=== PATIENT | male | born 1930 | race Caucasian/White ===

== ENCOUNTER 2016-12-14 09:12 | Emergency (ER) | payer OTHER, MEDICARE ==
--- NOTE | 2016-12-14 09:27 | ER Document Report ---
ED Fall - General Chief Complaint: Fall Stated Complaint: FALL Time Seen by Provider: 12/14/16 09:17 Notes: 86-year-old male with history of diabetes presents with left-sided chest pain after falling 2 days ago. Initially did not realize he had much of an injury but today he noticed he has increased pain in his left lateral chest wall more towards the back. It is worse with movement such as sitting up. No cough. No shortness of breath. No hemoptysis. Had some bruising to his left elbow but denies any significant pain now. Denies abdominal pain. No anterior chest pain. Denies spine discomfort, headache or loss of consciousness. - Related data Allergies/Adverse Reactions: No Known Allergies Allergy (Verified 12/14/16 09:44) Past Medical History - Social History Smoking Status: Unknown if Ever Smoked Lives with: Skilled Nursing Family History: Reviewed & Not Pertinent Review of Systems - Review of Systems -: Yes All other systems reviewed and negative Physical Exam - Vital signs Vitals: Temp Pulse Resp BP Pulse Ox 98.2 F 51 L 16 139/55 H 95 12/14/16 09:23 12/14/16 09:23 12/14/16 09:23 12/14/16 09:23 12/14/16 09:23 - Notes Notes: GENERAL: VS as per nursing doc. Well-appearing, well-nourished and in no acute distress. HEAD: Atraumatic, normocephalic. EYES: Pupils equal round and reactive to light, extraocular movements intact, sclera anicteric, no conjunctival injection or discharge. ENT: Nares patent, oropharynx clear without exudates, moist mucous membranes. NECK: Normal range of motion, supple without tenderness to palpation LUNGS: Breath sounds clear to auscultation bilaterally and equal. No wheezes rales or rhonchi. No splinting. HEART: Regular rate and rhythm without murmurs. ABDOMEN: Soft, non-tender. BACK: No CVA tenderness. There is tenderness without crepitance of the left lateral chest wall from the axillary region to the posterior axillary line of the lower ribs. No crepitance is noted. EXTREMITIES: Normal range of motion, mild ecchymosis of left elbow. Good range of motion without pain elicited by palpation or movement. NEUROLOGICAL: Cranial nerves grossly intact. Normal speech. Normal sensory and motor exams. No gross cerebellar abnormalities. PSYCH: Normal mood, normal affect. SKIN: Warm, dry, normal turgor, no lesions noted. Course - Re-evaluation Re-evalutation: 12/14/16 11:26 X-ray did not show any fractures. Clinically he does not seem to have a fracture either but more consistent with strain/contusion. Aftercare instructions discussed and understood. - Vital Signs Vital signs: Temp Pulse Resp BP Pulse Ox 98.2 F 51 L 16 139/55 H 95 12/14/16 09:23 12/14/16 09:23 12/14/16 09:23 12/14/16 09:23 12/14/16 09:23 - Diagnostic Test Radiology reviewed: Reports reviewed - No Fracture Discharge - Discharge Clinical Impression: Contusion of chest wall with intact skin Condition: Good Disposition: REHAB FACILITY Additional Instructions: Return for any problem or concern. Tylenol for discomfort. Referrals: KEV ESCOBAR MD [Primary Care Provider] - Follow up in 3-5 days
--- NOTE | 2016-12-14 11:18 | RADIOLOGY REPORT (SQ) ---
EXAM DESCRIPTION: RIBS LEFT W/PA CHEST COMPLETED DATE/TIME: 12/14/2016 11:07 am REASON FOR STUDY: Trauma with pain COMPARISON: None. TECHNIQUE: Frontal view of the chest and additional views of the left ribs acquired. NUMBER OF VIEWS: Four views LIMITATIONS: None. FINDINGS: FRONTAL CXR: No pneumothorax. No pleural effusion. No atelectasis or infiltrates. RIBS: No displaced rib fractures. No lytic or blastic bony lesions. OTHER: No other significant finding. IMPRESSION: NO PNEUMOTHORAX. NO DISPLACED RIB FRACTURES. COMMENT: SITE OF TRAUMA/COMPLAINT MARKED/STAMP COMPLETED: Yes TECHNICAL DOCUMENTATION: JOB ID: [id number] [employer]- All Rights Reserved
[2016-12-14] MEDS ORDERED: ACETAMINOPHEN 325 MG TABLET PO ONE (11:29)
[2016-12-14 14:31] VITALS: BP 115/55
== END 2016-12-14 14:32 ==
LOC: ER 09:12
DX: S20.219A Contusion of unspecified front wall of thorax, initial encounter (principal); S50.02XA Contusion of left elbow, initial encounter; W19.XXXA Unspecified fall, initial encounter
CPT/HCPCS: 99284

== ENCOUNTER 2017-08-16 11:33 | Emergency (ER) | payer OTHER, MEDICARE ==
[2017-08-16 11:54] VITALS: BP 148/64
--- NOTE | 2017-08-16 12:04 | ER Document Report ---
ED General - General Chief Complaint: Abnormal Lab Results Stated Complaint: ABNORMAL LABS Time Seen by Provider: 08/16/17 11:45 - HPI Notes: 87-year-old male with dementia who presents with abnormal laboratory. Last week patient had outpatient labs drawn, results came back this week and listed a potassium of 2.5. He is sent to the ED for evaluation. He himself denies any acute complaint. He is somewhat of a poor historian given his dementia, indicates he has some chronic loose stools and takes a water pill. He denies weakness. No chest pain, dyspnea. No vomiting. No worsening diarrhea. No change in underlying medications. No other modifying factors, no other associated symptoms, no other provocative or palliative factors. - Related Data Allergies/Adverse Reactions: No Known Allergies Allergy (Verified 12/14/16 09:44) Past Medical History - Social History Smoking Status: Unknown if Ever Smoked Family History: Reviewed & Not Pertinent Patient has suicidal ideation: No Patient has homicidal ideation: No - Medical History Notes: History includes dementia - Past Medical History Cardiac Medical History: Reports: Hx Hypertension Endocrine Medical History: Reports: Hx Diabetes Mellitus Type 2 Renal/ Medical History: Denies: Hx Peritoneal Dialysis Review of Systems - Review of Systems Notes: Review of systems as in the history of present illness, otherwise negative. Physical Exam - Vital signs Vitals: Temp Pulse Resp BP Pulse Ox 97.8 F 46 L 16 148/64 H 98 08/16/17 11:53 08/16/17 11:53 08/16/17 11:53 08/16/17 11:53 08/16/17 11:53 - Notes Notes: General: Well developed . HEENT: Normocephalic, atraumatic. Pupils equal round reactive to light. No JVD. Chest: No trauma. Respiratory: Good air exchange, normal excursion. Cardiac: Regular rhythm. No murmurs or gallops. Abdomen: Soft, benign. Nondistended. Nontender. Back: No asymmetry or gross abnormality. Motor: Grossly normal power and tone. Neurologic: Alert, nonfocal. DTRs 1+ symmetric Vascular: Well perfused. Normal peripheral pulses. Skin: No petechiae or purpura. Course - Re-evaluation Re-evalutation: 08/16/17 12:04 elderly male with the after mentioned symptoms. Will recheck potassium, check ECG. Serial examination reevaluate. 08/16/17 13:05 Patient is done well, remains asymptomatic. ECG was obtained, shows sinus bradycardia. Patient's potassium is low at 2.8. He has no EKG evidence of U waves. He is given a dose of oral potassium in the ED and discharged on supplementation, will have it rechecked over the next 48 hours. He does have some moderate bradycardia, but his sinus in mechanism and is asymptomatic. This can be followed as an outpatient. - Vital Signs Vital signs: Temp Pulse Resp BP Pulse Ox 97.8 F 46 L 16 148/64 H 98 08/16/17 11:53 08/16/17 11:53 08/16/17 11:53 08/16/17 11:53 08/16/17 11:53 - Laboratory Result Diagrams: 08/16/17 12:03 Laboratory results interpreted by me: 08/16/17 12:03 Potassium 2.8 L* Carbon Dioxide 34 H Glucose 113 H Albumin 3.4 L - EKG Interpretation by Me Additional EKG results interpreted by me: 08/16/17 13:08 12 Lead ECG Analysis A 12 lead ECG is obtained and shows a sinus bradycardia, normal QRS, normal QTC. There are nonspecific ST-T changes, no evidence of acute ischemic changes. Discharge - Discharge Clinical Impression: Hypokalemia Condition: Good Disposition: HOME, SELF-CARE Instructions: Hypokalemia ([facility]) Prescriptions: Potassium Chloride 20 meq PO BID 5 Days [email or web address] Referrals: KEV ESCOBAR MD [Primary Care Provider] - Follow up as needed
[2017-08-16 12:43] LABS: ALANINE AMINOTRANSFERASE 22 U/L (21-72); ALBUMIN 3.4 g/dL (3.5-5.0); ALKALINE PHOSPHATASE 79 U/L (38-126); ANION GAP 11 (5-19); ASPARTATE AMINO TRANSFERASE 23 U/L (17-59); BILIRUBIN,DIRECT 0.3 mg/dL (0.0-0.4); BILIRUBIN,TOTAL 0.8 mg/dL (0.2-1.3); BLOOD UREA NITROGEN 17 mg/dL (7-20); CALCIUM 8.7 mg/dL (8.4-10.2); CARBON DIOXIDE 34 mmol/L (22-30); CHLORIDE 100 mmol/L (98-107); GLUCOSE 113 mg/dL (75-110); SODIUM 144.7 mmol/L (137-145); TOTAL PROTEIN 6.3 g/dL (6.3-8.2)
[2017-08-16 12:45] LABS: POTASSIUM 2.8 mmol/L (3.6-5.0)
[2017-08-16] MEDS ORDERED: POTASSIUM CHLORIDE 20 MEQ/15 ML UDCUP PO ONE (12:57)
--- NOTE | 2017-08-16 18:05 | EKG REPORT ---
SEVERITY:- ABNORMAL ECG - SINUS BRADYCARDIA . LEFT VENTRICULAR HYPERTROPHY : Confirmed by: Jayden Lovelace MD 16-Aug-2017 18:05:16
== END 2017-08-16 13:45 | disposition home or self-care (01) ==
LOC: ER 11:33
DX: E87.6 Hypokalemia (principal); I10 Essential (primary) hypertension; F03.90 Unspecified dementia, unspecified severity, without behavioral disturbance, psychotic disturbance, mood disturbance, and anxiety; E11.9 Type 2 diabetes mellitus without complications; R00.1 Bradycardia, unspecified
CPT/HCPCS: 36415; 80053; 93005; 93010; 99284

== ENCOUNTER 2018-01-02 14:56 | Emergency (ER) | payer MEDICARE, OTHER ==
[2018-01-02 15:40] LABS: ABSOLUTE MONOCYTES (AUTO) 0.7 10^3/uL (0.1-1.4); ABSOLUTE NEUT (AUTO) 6.3 10^3/uL (1.7-8.2); BASOPHILS % (AUTO) 0.4 % (0-2); EOSINOPHILS % (AUTO) 0.5 % (0-6); HEMATOCRIT 39.6 % (37.9-51.0); HEMOGLOBIN 13.7 g/dL (13.5-17.0); LYMPHOCYTES % (AUTO) 12.4 % (13-45); MEAN CORPUSCULAR HEMOGLOBIN 30.3 pg (27.0-33.4); MEAN CORPUSCULAR HGB CONC 34.6 g/dL (32.0-36.0); MEAN CORPUSCULAR VOLUME 88 fl (80-97); MONOCYTES % (AUTO) 9.2 % (3-13); PLATELET COUNT 264 10^3/uL (150-450); RED BLOOD COUNT 4.53 10^6/uL (4.35-5.55); RED CELL DISTRIBUTION WIDTH 13.7 % (11.5-14.0); SEGMENTED NEUTROPHILS % (AUTO) 77.5 % (42-78); TOTAL CELLS COUNTED % (AUTO) 100 %; WHITE BLOOD COUNT 8.1 10^3/uL (4.0-10.5)
[2018-01-02 15:56] LABS: ALANINE AMINOTRANSFERASE 17 U/L (21-72); ALBUMIN 3.7 g/dL (3.5-5.0); ALKALINE PHOSPHATASE 309 U/L (38-126); ANION GAP 9 (5-19); ASPARTATE AMINO TRANSFERASE 27 U/L (17-59); BILIRUBIN,DIRECT 0.6 mg/dL (0.0-0.4); BILIRUBIN,TOTAL 1.1 mg/dL (0.2-1.3); BLOOD UREA NITROGEN 25 mg/dL (7-20); CALCIUM 9.3 mg/dL (8.4-10.2); CARBON DIOXIDE 29 mmol/L (22-30); CHLORIDE 100 mmol/L (98-107); GLUCOSE 153 mg/dL (75-110); LIPASE 186.9 U/L (23-300); POTASSIUM 4.4 mmol/L (3.6-5.0); SODIUM 137.8 mmol/L (137-145); TOTAL PROTEIN 7.4 g/dL (6.3-8.2)
--- NOTE | 2018-01-02 15:58 | ER Document Report ---
HPI - HPI Pain Level: 2 Notes: Patient is an 87-year-old male with a history of dementia, Alzheimer's, hypertension, and BPH who presents to the ED complaining of dark colored urine and bilateral flank pain over the last week. Patient states the pain does not radiate and is described as a soreness. Patient states that the pain is relatively constant. He has not noticed any obvious blood in his urine. He has not had any history of kidney stones. Denies any drug allergies. Patient states that he otherwise feels well and has been eating and drinking without any difficulties. He states that he is urinating normally and having normal bowel movements. Denies any headache, fever, neck pain, URI, sore throat, chest pain, palpitations, syncope, cough, shortness of breath, wheeze, dyspnea, abdominal pain, nausea/vomiting/diarrhea, dysuria, hematuria, loss of control of bowel or bladder, numbness/tingling, saddle anesthesia, muscle paralysis/ weakness, or rash. - ROS Systems Reviewed and Negative: Yes All other systems reviewed and negative - Patient appears to be able to answer questions appropriately at this time - DERM Skin Color: Normal Past Medical History - Social History Smoking Status: Never Smoker Chew tobacco use (# tins/day): No Frequency of alcohol use: None Drug Abuse: None Family History: Reviewed & Not Pertinent Patient has suicidal ideation: No Patient has homicidal ideation: No - Past Medical History Cardiac Medical History: Reports: Hx Hypertension Endocrine Medical History: Reports: Hx Diabetes Mellitus Type 2 Renal/ Medical History: Denies: Hx Peritoneal Dialysis Vertical Provider Document - CONSTITUTIONAL Agree With Documented VS: Yes Notes: PHYSICAL EXAMINATION: GENERAL: Well-appearing, well-nourished and in no acute distress. A&Ox3. HEAD: Atraumatic, normocephalic. EYES: Pupils equal round and reactive to light, extraocular movements intact, sclera anicteric, conjunctiva are normal. ENT: Nares patent and without discharge. oropharynx clear without exudates. No tonsilar hypertrophy or erythema. Moist mucous membranes. NECK: Normal range of motion, supple without lymphadenopathy LUNGS: Breath sounds clear to auscultation bilaterally and equal. No wheezes rales or rhonchi. HEART: Regular rate and rhythm without murmurs, rubs, gallops. ABDOMEN: Soft, nontender, nondistended abdomen. No guarding, no rebound. No masses appreciated. Normal bowel sounds present. + mild CVA tenderness bilaterally vs tenderness to the L-paraspinal mm (difficult to specifiy with this patient), but suspect paraspinal mm. Musculoskeletal: LE's b/l: FROM to passive/active. Strength 5+/5. No deficits noted. No bony tenderness of extremities. Back: FROM to passive/active. Strength 5+/5. No vertebral point tenderness, stepoffs, or deformities. No other bony tenderness, erythema, swelling, or ecchymosis. SLR negative b/l. + mild tenderness to the L-paraspinal mm b/l, correlates with pain described/reproducible. No SI jt tenderness. No foot drop Extremities: No cyanosis, clubbing, or edema b/l. Peripheral pulses 2+. Capillary refill less than 3 seconds. NEUROLOGICAL: Cranial nerves grossly intact. Normal speech, normal gait. PSYCH: Normal mood, normal affect. SKIN: Warm, Dry, normal turgor, no rashes or lesions noted. - INFECTION CONTROL TRAVEL OUTSIDE OF THE [place] IN LAST 30 DAYS: No Course - Re-evaluation Re-evalutation: 01/02/18 18:25 Patient is an afebrile, well-hydrated, 87-year-old male who presents to the ED for bilateral low back pain and concern of darker colored urine. Vitals are acceptable without any significant tachycardia, tachypnea, or hypoxia. CBC, CMP , urinalysis, renal ultrasound was unremarkable for any acute pathology. He has no significant tachycardia, tachypnea, or hypoxia. A seth was placed after patient urinated and only a minimal amount was obtained indicating that he is able to fully urinate w/o difficulty or obstruction at this time. He is nontoxic-appearing and is tolerating p.o. without difficulties. There are no signs of infection. No other red flag symptoms noted. No other labs or imaging warranted at this time based on H&P. Low suspicion for any meningitis, fracture, expanding/ruptured AAA, cauda equina syndrome, epidural mass lesion/ abscess, herniated disc causing severe spinal stenosis, or other systemic infection at this time. Patient is aware that his condition can change from initial presentation and that he needs monitor symptoms closely for any acute changes. Conservative measures otherwise for symptoms. Recheck with your PCM in 3-5 days. Consider consult with orthopedic/physical therapy. Return to the ED with any worsening/concerning symptoms otherwise as reviewed discharge. Patient is in agreement. - Laboratory Result Diagrams: 01/02/18 15:00 01/02/18 15:00 Laboratory results interpreted by me: 01/02/18 15:00 Lymphocytes % 12.4 L Discharge - Discharge Clinical Impression: Low back pain Qualifiers: Chronicity: acute Back pain laterality: bilateral Sciatica presence: without sciatica Qualified Code(s): M54.5 - Low back pain Condition: Stable Disposition: HOME, SELF-CARE Additional Instructions: Rest, Ice Tylenol/ibuprofen as needed Light stretches daily Strength exercises as able Moist heat and massage may help F/u with your PCP in 3-5 days for a recheck Consider consult(s) with Orthopedics/physical therapy for ongoing/worsening symptoms Return to the ED with any worsening symptoms and/or development of fever, headache, chest pain, palpitations, syncope, shortness of breath, trouble breathing, abdominal pain, n/v/d, blood in stool/urine, loss of control of bowel /bladder, urinary retention, muscle weakness/paralysis, saddle anesthesia, numbness/tingling, or other worsening symptoms that are concerning to you. Referrals: KEV ESCOBAR MD [Primary Care Provider] - 01/05/18
[2018-01-02 16:10] LABS: APPEARANCE,URINE SLIGHTLY-CLOUDY; BILIRUBIN,URINE NEGATIVE (NEGATIVE); COLOR,URINE YELLOW; GLUCOSE, URINE NEGATIVE (NEGATIVE); KETONES,URINE NEGATIVE (NEGATIVE); LEUKOCYTE ESTERASE,URINE NEGATIVE (NEGATIVE); NITRITE,URINE NEGATIVE (NEGATIVE); PROTEIN,URINE NEGATIVE (NEGATIVE); URINE SPECIFIC GRAVITY 1.013
--- NOTE | 2018-01-02 18:14 | RADIOLOGY REPORT (SQ) ---
EXAM DESCRIPTION: U/S RETROPERITON (RENAL/AORTA) COMPLETED DATE/TIME: 01/02/2018 5:33 pm REASON FOR STUDY: b/l flank pain COMPARISON: None. TECHNIQUE: Dynamic and static grayscale images acquired of the kidneys and bladder and recorded on P ACS. Additional selected color Doppler and spectral images recorded. LIMITATIONS: Body habitus FINDINGS: RIGHT KIDNEY: 9.8 cm in size with mild diffuse cortical thinning and increased echogenicit y. 1.4 cm right upper pole cortical cyst. No solid or suspicious masses. No hydronephrosis. No calc ifications. LEFT KIDNEY: 10.7 cm in length with grossly normal cortical thickness and echogenicity. No solid or suspicious masses. No hydronephrosis. No calcifications. BLADDER: Incompletely distended. Not well seen OTHER FINDINGS: Prostate is 8 x 5 x 4 cm in size IMPRESSION: No hydronephrosis TECHNICAL DOCUMENTATION: JOB ID: [id number] [employer]- All Rights Reserved Reading location - IP/workstation name: [email or web address]
[2018-01-02] MEDS ORDERED: NORMAL SALINE 1000 ML 1,000 ML IV ONE (18:24)
== END 2018-01-02 22:10 | disposition home or self-care (01) ==
LOC: ER 14:56
DX: M54.5 Low back pain (principal); R82.90 Unspecified abnormal findings in urine; I10 Essential (primary) hypertension; E11.9 Type 2 diabetes mellitus without complications; G30.9 Alzheimer's disease, unspecified; F02.80 Dementia in other diseases classified elsewhere, unspecified severity, without behavioral disturbance, psychotic disturbance, mood disturbance, and anxiety
CPT/HCPCS: 99284; 96360; 36415; 83690; 85025; 80053; 81001; 76770; J7030

== ENCOUNTER 2018-02-05 05:40 | Emergency (ER) | payer MEDICARE, OTHER ==
[2018-02-05] MEDS ORDERED: MORPHINE SULFATE 10 MG/ML INJ IV ONE ×2 (06:18→08:09)
[2018-02-05 06:21] VITALS: BP 146/71
[2018-02-05 06:26] LABS: ABSOLUTE LYMPHOCYTES (AUTO) 0.7 10^3/uL (0.5-4.7); ABSOLUTE MONOCYTES (AUTO) 0.6 10^3/uL (0.1-1.4); ABSOLUTE NEUT (AUTO) 5.2 10^3/uL (1.7-8.2); BASOPHILS % (AUTO) 0.3 % (0-2); EOSINOPHILS % (AUTO) 0.2 % (0-6); HEMATOCRIT 36.7 % (37.9-51.0); HEMOGLOBIN 12.4 g/dL (13.5-17.0); LYMPHOCYTES % (AUTO) 10.9 % (13-45); MEAN CORPUSCULAR HEMOGLOBIN 29.4 pg (27.0-33.4); MEAN CORPUSCULAR HGB CONC 33.7 g/dL (32.0-36.0); MEAN CORPUSCULAR VOLUME 87 fl (80-97); MONOCYTES % (AUTO) 8.9 % (3-13); PLATELET COUNT 294 10^3/uL (150-450); RED BLOOD COUNT 4.21 10^6/uL (4.35-5.55); RED CELL DISTRIBUTION WIDTH 14.6 % (11.5-14.0); SEGMENTED NEUTROPHILS % (AUTO) 79.7 % (42-78); TOTAL CELLS COUNTED % (AUTO) 100 %; WHITE BLOOD COUNT 6.5 10^3/uL (4.0-10.5)
[2018-02-05 06:38] LABS: ANION GAP 9 (5-19); BLOOD UREA NITROGEN 22 mg/dL (7-20); CALCIUM 8.7 mg/dL (8.4-10.2); CARBON DIOXIDE 29 mmol/L (22-30); CHLORIDE 101 mmol/L (98-107); GLUCOSE 131 mg/dL (75-110); POTASSIUM 4.4 mmol/L (3.6-5.0); SODIUM 138.9 mmol/L (137-145)
--- NOTE | 2018-02-05 06:38 | ER Document Report ---
ED General - General Chief Complaint: Back Pain Stated Complaint: BODY PAIN Time Seen by Provider: 02/05/18 05:59 TRAVEL OUTSIDE OF THE [place] IN LAST 30 DAYS: No - HPI Notes: Patient is a 87-year-old male that presents to the emergency department for chief complaint of back pain. Patient reports thoracic back pain for 1-1/2 months. The pain is constant and worse with movement. He reports some temporary relief with Tylenol and heat. He denies injury or trauma. He states he has been seen for this pain previously and was told that it was his back and not his kidneys. He denies any change in his back pain over the last month and a half but states it is more severe today than usual. He denies any fever, dysuria, nausea, vomiting, abdominal pain, chest pain and shortness of breath Past Medical History: Alzheimer's dementia Past Surgical History: Reviewed in chart Social History: Denies drugs alcohol and tobacco Family History: Reviewed and noncontributory for presenting illness Allergies: Reviewed, see documented allergy list. REVIEW OF SYSTEMS: CONSTITUTIONAL : No fever No chills No diaphoresis No recent illness EENT: No vision changes No congestion No sore throat CARDIOVASCULAR: No chest pain No palpitations RESPIRATORY: No shortness of breath No cough No difficulty breathing GASTROINTESTINAL: No abdominal pain No nausea No vomiting No diarrhea GENITOURINARY: No dysuria No hematuria No difficulty urinating MUSCULOSKELETAL: back pain No leg pain No arm pain SKIN: No rashes No lesions LYMPHATIC: No swollen, enlarged glands. NEUROLOGICAL: No lightheadedness No headache No weakness No paresthesias PSYCHIATRIC: No anxiety No depression PHYSICAL EXAMINATION: Vital signs reviewed, nursing noted reviewed. GENERAL: Well-appearing, well-nourished and in no acute distress. HEAD: Atraumatic, normocephalic. EYES: Eyes appear normal, extraocular movements intact, sclera anicteric, conjunctiva are normal. ENT: nares patent, oropharynx clear without exudates. Moist mucous membranes. NECK: Normal range of motion, supple without lymphadenopathy Back: Midline thoracic and lumbar spinal tenderness. No overlying erythema or ecchymosis. Bilateral thoracic and lumbar paraspinal muscle tenderness LUNGS: Breath sounds clear to auscultation bilaterally and equal. No wheezes rales or rhonchi. HEART: Regular rate and rhythm without murmurs ABDOMEN: Soft, nontender, normoactive bowel sounds. No rebound, guarding, or rigidity. No masses appreciated. EXTREMITIES: Nontender, good range of motion, no pitting or edema. NEUROLOGICAL: No focal neurological deficits. Moves all extremities spontaneously Motor and sensory grossly intact on exam. PSYCH: Normal mood, normal affect. SKIN: Warm, Dry, normal turgor, no rashes or lesions noted on exposed skin - Related Data Allergies/Adverse Reactions: No Known Allergies Allergy (Verified 12/14/16 09:44) Past Medical History - Social History Smoking Status: Never Smoker Family History: Reviewed & Not Pertinent Patient has suicidal ideation: No Patient has homicidal ideation: No - Past Medical History Cardiac Medical History: Reports: Hx Hypertension Endocrine Medical History: Reports: Hx Diabetes Mellitus Type 2 Renal/ Medical History: Denies: Hx Peritoneal Dialysis Review of Systems - Review of Systems Notes: Dictated Physical Exam - Vital signs Vitals: Temp Pulse Resp BP Pulse Ox 97.5 F 69 19 146/71 H 98 02/05/18 05:47 02/05/18 05:47 02/05/18 05:47 02/05/18 05:47 02/05/18 05:47 - Notes Notes: Dictated Course - Re-evaluation Re-evalutation: 02/05/18 06:38 Vitals reviewed. Nursing notes reviewed. Patient is afebrile and nontoxic- appearing. He was given morphine for symptomatic management. 02/05/18 08:09 Patient reevaluated and did have some improvement of his back pain but was still uncomfortable and given a second dose of pain medication. CT scan show chronic degenerative changes of his spine with no acute fracture or subluxation. Patient's lab work is unremarkable. He does have trace leukocytes however he has no urinary tract infection symptoms. Urine culture will be sent and antibiotics held until culture results. Patient will be discharged home in stable condition. He will be given Sherrill for his back pain. He was encouraged to follow with primary care for further pain control of his Laboratory 02/05/18 02/05/18 02/05/18 05:51 05:51 06:32 WBC 6.5 RBC 4.21 L Hgb 12.4 L Hct 36.7 L MCV 87 MCH 29.4 MCHC 33.7 RDW 14.6 H Plt Count 294 Seg Neutrophils % 79.7 H Lymphocytes % 10.9 L Monocytes % 8.9 Eosinophils % 0.2 Basophils % 0.3 Absolute Neutrophils 5.2 Absolute Lymphocytes 0.7 Absolute Monocytes 0.6 Absolute Eosinophils 0.0 Absolute Basophils 0.0 Sodium 138.9 Potassium 4.4 Chloride 101 Carbon Dioxide 29 Anion Gap 9 BUN 22 H Creatinine 0.79 Est GFR ( Amer) > 60 Est GFR (Non-Af Amer) > 60 Glucose 131 H Calcium 8.7 Urine Color YELLOW Urine Appearance SLIGHTLY-CLOUDY Urine pH 5.0 Ur Specific [place] 1.018 Urine Protein NEGATIVE Urine Glucose (UA) NEGATIVE Urine Ketones TRACE H Urine Blood NEGATIVE Urine Nitrite NEGATIVE Urine Bilirubin NEGATIVE Urine Urobilinogen 2.0 H Ur Leukocyte Esterase TRACE H Urine WBC (Auto) 7 Urine RBC (Auto) 1 Squamous Epi Cells Auto 3 Urine Mucus (Auto) RARE Urine Ascorbic Acid NEGATIVE Lumbar Spine CT 02/05/18 06:20 IMPRESSION: No acute fracture or subluxation involving the thoracic or lumbar spine. Mild chronic anterior wedging of the T11 vertebral body. Mild bilateral neural foraminal narrowing at T10-T11 and T11-T12. Moderate bilateral neural foraminal narrowing at L4-L5. TECHNICAL DOCUMENTATION: Quality ID # 436: Final reports with documentation of one or more dose reduction techniques (e.g., Automated exposure control, adjustment of the mA and/or kV according to patient size, use of iterative reconstruction technique) 2010 [employer]- All Rights Reserved Thoracic Spine CT 02/05/18 06:20 IMPRESSION: No acute fracture or subluxation involving the thoracic or lumbar spine. Mild chronic anterior wedging of the T11 vertebral body. Mild bilateral neural foraminal narrowing at T10-T11 and T11-T12. Moderate bilateral neural foraminal narrowing at L4-L5. TECHNICAL DOCUMENTATION: Quality ID # [id number]: Final reports with documentation of one or more dose reduction techniques (e.g., Automated exposure control, adjustment of the mA and/or kV according to patient size, use of iterative reconstruction technique) 2010 [employer]- All Rights Reserved back pains. - Vital Signs Vital signs: Temp Pulse Resp BP Pulse Ox 97.5 F 69 19 146/71 H 98 02/05/18 05:47 02/05/18 05:47 02/05/18 05:47 02/05/18 05:47 02/05/18 05:47 - Laboratory Result Diagrams: 02/05/18 05:51 02/05/18 05:51 Laboratory results interpreted by me: 02/05/18 02/05/18 02/05/18 05:51 05:51 06:32 RBC 4.21 L Hgb 12.4 L Hct 36.7 L RDW 14.6 H Seg Neutrophils % 79.7 H Lymphocytes % 10.9 L BUN 22 H Glucose 131 H Urine Ketones TRACE H Urine Urobilinogen 2.0 H Ur Leukocyte Esterase TRACE H Discharge - Discharge Clinical Impression: Back pain Qualifiers: Back pain location: thoracic back pain Chronicity: acute Back pain laterality: bilateral Qualified Code(s): M54.6 - Pain in thoracic spine Condition: Stable Disposition: HOME, SELF-CARE Instructions: Chronic Back Pain ([facility]) Additional Instructions: Please return to the emergency department if you have any worsening, or concern of your symptoms. Please return to the emergency department if you develop chest pain, difficulty breathing, severe abdominal pain, or ongoing vomiting. Please follow-up with your primary care physician in 2-3 days and any other recommended physicians. If prescribed, take all medications as directed. If you have any questions or concerns do not hesitate to return the emergency department for evaluation. [] Prescriptions: Hydrocodone/Acetaminophen [Sherrill 5-325 mg Tablet] 0.5 - 1 tab PO Q6 #12 tablet
--- NOTE | 2018-02-05 07:08 | RADIOLOGY REPORT (SQ) ---
EXAM DESCRIPTION: CT LUMBAR SPINE WITHOUT IV CONTRAST, CT THORACIC SPINE WITHOUT IV CONTRAST COMPLETED DATE/TME: 02/05/2018 06:20 CLINICAL HISTORY: 87 years, Male, pain COMPARISON: None. TECHNIQUE: Axial CT images of the thoracic and lumbar spine were obtained without contrast. DLP for the thoracic spine 645. DLP for the lumbar spine 648 Images stored on PACS. All CT scanners at this facility use dose modulation, iterative reconstruction, and/or weight based dosing when appropriate to reduce radiation dose to as low as reasonably achievable (ALARA). [facility]: Dose Right [facility]: CareDose [facility]: Dose Right [facility]: Teradose 4D [facility]: [employer]2Go LIMITATIONS: None. FINDINGS: Thoracic spine: The alignment of the thoracic spine is satisfactory. There is a sclerotic focus along the anterior superior endplate of T1. There is no acute fracture or subluxation. There is mild chronic anterior wedging of the T11 vertebral body. The remainder of the vertebral heights are maintained. There is no significant spinal canal stenosis at any level. There is mild bilateral neural foraminal narrowing at T10-T11 and T11-T12. There is no paraspinal hematoma. There is mild disc space narrowing with anterior osteophytes from T6-T7 to T10-T11. Incidental note is made of a moderate size hiatal hernia. There are nonobstructing parenchymal calcifications within the left kidney. Lumbar spine: There is minimal grade 1 anterolisthesis of L4 over L5 secondary to facet arthropathy. There is no acute fracture or subluxation. The vertebral heights are maintained. There is a mild diffuse disc bulge at L4-L5. There is moderate bilateral neural foraminal narrowing at L4-L5 secondary to facet arthropathy. There is no significant spinal canal stenosis at any level. There is facet arthropathy the lower lumbar spine most notably at L4-L5. There are atherosclerotic calcifications of the abdominal aorta without evidence of an aneurysm. IMPRESSION: No acute fracture or subluxation involving the thoracic or lumbar spine. Mild chronic anterior wedging of the T11 vertebral body. Mild bilateral neural foraminal narrowing at T10-T11 and T11-T12. Moderate bilateral neural foraminal narrowing at L4-L5. TECHNICAL DOCUMENTATION: Quality ID # 436: Final reports with documentation of one or more dose reduction techniques (e.g., Automated exposure control, adjustment of the mA and/or kV according to patient size, use of iterative reconstruction technique) 2010 [employer]- All Rights Reserved
[2018-02-05 07:51] LABS: APPEARANCE,URINE SLIGHTLY-CLOUDY; BILIRUBIN,URINE NEGATIVE (NEGATIVE); COLOR,URINE YELLOW; GLUCOSE, URINE NEGATIVE (NEGATIVE); KETONES,URINE TRACE mg/dL (NEGATIVE); LEUKOCYTE ESTERASE,URINE TRACE (NEGATIVE); NITRITE,URINE NEGATIVE (NEGATIVE); PROTEIN,URINE NEGATIVE (NEGATIVE); URINE SPECIFIC GRAVITY 1.018
== END 2018-02-05 10:46 | disposition home or self-care (01) ==
LOC: ER 05:40
DX: M54.6 Pain in thoracic spine (principal); M79.10 Myalgia, unspecified site; I10 Essential (primary) hypertension; E11.9 Type 2 diabetes mellitus without complications
CPT/HCPCS: 96376; 99285; 96374; 36415; 87086; 85025; 80048; 81001; 72128; 72131; J2270

== ENCOUNTER 2018-04-14 20:04 | Emergency (ER) | payer MEDICARE, OTHER ==
--- NOTE | 2018-04-14 20:41 | RADIOLOGY REPORT (SQ) ---
EXAM DESCRIPTION: XR CHEST 1 VIEW COMPLETED DATE/TME: 04/14/2018 00:00 CLINICAL HISTORY: 87 years, Male, fall Findings: Heart is mildly enlarged. No consolidation or pleural effusion. No pulmonary edema or pneumothorax. IMPRESSION: No acute disease.
--- NOTE | 2018-04-14 21:03 | ER Document Report ---
ED General - General Chief Complaint: Fall Injury Stated Complaint: FALL Time Seen by Provider: 04/14/18 20:11 Notes: 87-year-old male presents from his assisted living facility after falling on a metal chair and hitting his left side after trip. He states he was walking to the back patio and tripped and fell back and landed on the arm of the chair, he denies hitting his head or loss of consciousness. Per run report he vomited one time that is related to pain. Patient currently complains of severe pain to his left side, states it hurts to cough, complains of left upper and left lower quadrant abdominal pain. Patient denies being on any anticoagulation. Patient denies fevers, chills, headache, vision changes, complains of cough, denies shortness of breath, denies any urinary symptoms, denies back pain that is new. TRAVEL OUTSIDE OF THE [place] IN LAST 30 DAYS: No - Related Data Allergies/Adverse Reactions: No Known Allergies Allergy (Verified 12/14/16 09:44) Past Medical History - General Information source: Patient - Social History Smoking Status: Current Every Day Smoker Chew tobacco use (# tins/day): No Drug Abuse: None Family History: Reviewed & Not Pertinent Patient has suicidal ideation: No Patient has homicidal ideation: No - Past Medical History Cardiac Medical History: Reports: Hx Hypertension Endocrine Medical History: Reports: Hx Diabetes Mellitus Type 2 Renal/ Medical History: Denies: Hx Peritoneal Dialysis Review of Systems - Review of Systems Constitutional: See HPI EENT: See HPI Cardiovascular: No symptoms reported Respiratory: See HPI Gastrointestinal: See HPI Genitourinary: See HPI Male Genitourinary: No symptoms reported Musculoskeletal: See HPI Skin: No symptoms reported Hematologic/Lymphatic: No symptoms reported Neurological/Psychological: No symptoms reported Physical Exam - Vital signs Vitals: Temp Pulse Resp BP Pulse Ox 100.2 F 95 18 106/57 L 94 04/14/18 20:18 04/14/18 20:18 04/14/18 20:18 04/14/18 20:18 04/14/18 20:18 - Notes Notes: Reviewed vital signs and nursing note as charted by RN. CONSTITUTIONAL: Well-appearing, well-nourished, acting appropriately for age HEAD: Normocephalic, atraumatic, no swelling EYES: PERRL, Conjunctivae clear, no drainage, EOMI, no scleral icterus ENT: External ears without lesions, External auditory canal is patent, airway patent, mucous membranes pink and moist CARD: Regular rate and rhythm, no murmurs, no rubs, no gallops, capillary refill < 2 seconds, symmetric pulses RESP: The lungs are clear to auscultation bilaterally, no wheezing, no rales, no rhonchi. Respiratory rate and effort are normal, normal chest excursion. No respiratory distress, no retractions, no stridor, no nasal flaring, no accessory muscle use. ABD/GI: Normal bowel sounds, non-distended, soft, tender to palpation in the right upper quadrant and the left upper and lower quadrants, some edema in the left upper quadrant with no ecchymosis, no rebound, no guarding, no palpable organomegaly EXT: Normal ROM in all joints, non-tender to palpation, no effusions SKIN: Normal color for age and race, warm, dry, good turgor, no acute lesions noted NEURO: No facial asymmetry, moves all extremities equally, motor and sensory function intact Course - Re-evaluation Re-evalutation: 04/14/18 21:02 Pleasant 87-year-old male who is well-appearing presents to the emergency department after a fall at his long term where he fell into a metal chair onto his left side. Patient endorses severe pain. Patient denies being on any anticoagulation and complains of left upper quadrant abdominal pain. He does state that it hurts to cough. Chest x-ray was done which shows no acute pathology, and after personally reviewing I do not see any evidence of rib fractures. Plan is to get baseline labs and because of his pain and history to get CT abdomen with IV contrast pending his creatinine. 04/14/18 23:49 CT abdomen with IV contrast completed shows no of intra-abdominal bleed or concerning traumatic injury. Patient's lab work shows no evidence of acute anemia and on clinical exam patient is stable. Because patient did not hit his head and is a and O x4 it is reasonable to discharge patient back to his assisted living facility. he is stable for discharge. 04/17/18 01:53 - Vital Signs Vital signs: Temp Pulse Resp BP Pulse Ox 98.6 F 95 18 119/61 98 04/15/18 00:21 04/15/18 00:21 04/15/18 00:21 04/15/18 00:21 04/15/18 00:21 - Laboratory Result Diagrams: 04/14/18 21:25 04/14/18 21:25 Laboratory results interpreted by me: 04/14/18 04/14/18 04/14/18 21:25 21:25 23:05 RBC 3.47 L Hgb 10.0 L Hct 29.5 L RDW 16.7 H Seg Neutrophils % 82.0 H Lymphocytes % 7.8 L Sodium 134.0 L Potassium 5.3 H BUN 31 H Glucose 143 H Direct Bilirubin 0.5 H AST 91 H ALT 20 L Alkaline Phosphatase 653 H Total Protein 5.9 L Albumin 3.2 L Urine Urobilinogen 4.0 H Ur Leukocyte Esterase TRACE H Discharge - Discharge Clinical Impression: Fall Qualifiers: Encounter type: initial encounter Qualified Code(s): W19.XXXA - Unspecified fall, initial encounter Condition: Good Disposition: HOME-ASSISTED LIVING Additional Instructions: You have been seen in the Emergency Department (ED) today following a fall. Your workup today did not reveal any injuries that require you to stay in the hospital. You can expect, though, to be stiff and sore for the next several days. You can take Tylenol 1000 mg every 6 hours as needed for pain. You can apply a hot pack or electric heating pad to the sore areas. You can also use topical "Aspercreme with lidocaine" to sore areas as needed. Please follow up with your primary care doctor as soon as possible regarding today's ED visit and your recent fall. Call your doctor or return to the ED if you develop a sudden or severe headache, confusion, slurred speech, facial droop, weakness or numbness in any arm or leg, extreme fatigue, vomiting more than two times, severe abdominal pain, or other symptoms that concern you. [facility]errals: [facility] [Primary [facility] Provider] - Follow up as needed
[2018-04-14 21:42] LABS: ABSOLUTE LYMPHOCYTES (AUTO) 0.5 10^3/uL (0.5-4.7); ABSOLUTE MONOCYTES (AUTO) 0.6 10^3/uL (0.1-1.4); ABSOLUTE NEUT (AUTO) 5.4 10^3/uL (1.7-8.2); BASOPHILS % (AUTO) 0.4 % (0-2); EOSINOPHILS % (AUTO) 0.5 % (0-6); HEMATOCRIT 29.5 % (37.9-51.0); LYMPHOCYTES % (AUTO) 7.8 % (13-45); MEAN CORPUSCULAR HEMOGLOBIN 28.9 pg (27.0-33.4); MEAN CORPUSCULAR VOLUME 85 fl (80-97); MONOCYTES % (AUTO) 9.3 % (3-13); PLATELET COUNT 225 10^3/uL (150-450); RED BLOOD COUNT 3.47 10^6/uL (4.35-5.55); RED CELL DISTRIBUTION WIDTH 16.7 % (11.5-14.0); TOTAL CELLS COUNTED % (AUTO) 100 %; WHITE BLOOD COUNT 6.6 10^3/uL (4.0-10.5)
[2018-04-14 22:00] LABS: ALANINE AMINOTRANSFERASE 20 U/L (21-72); ALBUMIN 3.2 g/dL (3.5-5.0); ALKALINE PHOSPHATASE 653 U/L (38-126); ASPARTATE AMINO TRANSFERASE 91 U/L (17-59); BILIRUBIN,DIRECT 0.5 mg/dL (0.0-0.4); BILIRUBIN,TOTAL 0.9 mg/dL (0.2-1.3); BLOOD UREA NITROGEN 31 mg/dL (7-20); CALCIUM 8.5 mg/dL (8.4-10.2); GLUCOSE 143 mg/dL (75-110); POTASSIUM 5.3 mmol/L (3.6-5.0); TOTAL PROTEIN 5.9 g/dL (6.3-8.2)
[2018-04-14 22:05] LABS: ANION GAP 6 (5-19); CARBON DIOXIDE 29 mmol/L (22-30); CHLORIDE 99 mmol/L (98-107)
--- NOTE | 2018-04-14 23:13 | RADIOLOGY REPORT (SQ) ---
EXAM DESCRIPTION: CT ABDOMEN PELVIS WITH IV CONTRAST COMPLETED DATE/TME: 04/14/2018 20:56 CLINICAL HISTORY: 87 years, Male, fall, abdominal pain, Compared to CT thoracic and lumbar spine dated 02/05/2018. This exam was performed according to our departmental dose-optimization program which includes automated exposure control, adjustment of the mA and/or kVp according to patient size and/or use of iterative reconstruction technique where applicable. FINDINGS: Visualized lung bases are within normal limits. Liver, pancreas, adrenal glands are within normal limits. Status post cholecystectomy. No significant biliary dilatation. Right kidney demonstrates two cysts measuring up to 1 cm. No hydronephrosis. Spleen demonstrates multiple rounded hypodense lesions, measuring up to 4 x 3 cm. It is mildly enlarged. No dilated loops of bowel to suggest obstruction. Mild amount of stool in the colon. No free fluid or free air. Bladder is unremarkable. There is mild retroperitoneal periaortic lymphadenopathy, measuring up to 3.5 x 2.9 cm. Abdominal aorta is moderately calcified without aneurysm. No free fluid or free air. The prostate is mildly enlarged, measuring 5.8 x 5.1 cm. Vertebral body heights demonstrate mild 50% compression fracture of T10 vertebral body. This is unchanged from prior study but appears somewhat subacute. There is a mottled appearance to the vertebral bodies with extensive sclerotic foci. Pelvis also demonstrates diffuse sclerotic lesions. IMPRESSION: Findings are suspicious for lymphoma or metastatic disease with mild retroperitoneal periaortic lymphadenopathy and splenic hypodense lesions, along with extensive sclerotic lesions in the spine and pelvis.
[2018-04-14 23:27] LABS: APPEARANCE,URINE SLIGHTLY-CLOUDY; BILIRUBIN,URINE NEGATIVE (NEGATIVE); COLOR,URINE YELLOW; GLUCOSE, URINE NEGATIVE (NEGATIVE); KETONES,URINE NEGATIVE (NEGATIVE); LEUKOCYTE ESTERASE,URINE TRACE (NEGATIVE); NITRITE,URINE NEGATIVE (NEGATIVE); PROTEIN,URINE NEGATIVE (NEGATIVE); URINE SPECIFIC GRAVITY 1.019
[2018-04-15 00:26] VITALS: BP 119/61
== END 2018-04-15 00:26 | disposition home health service (06) ==
LOC: ER 20:04
DX: R10.12 Left upper quadrant pain (principal); R05 Cough; R07.9 Chest pain, unspecified; F17.200 Nicotine dependence, unspecified, uncomplicated; W07.XXXA Fall from chair, initial encounter; Y92.199 Unspecified place in other specified residential institution as the place of occurrence of the external cause; I10 Essential (primary) hypertension; E11.9 Type 2 diabetes mellitus without complications
CPT/HCPCS: 36415; 71045; 74177; 80053; 81001; 85025; 99284

== ENCOUNTER 2018-05-25 08:26 | Emergency (ER) | payer MEDICARE, OTHER ==
--- NOTE | 2018-05-25 09:30 | EKG REPORT ---
SEVERITY:- OTHERWISE NORMAL ECG - SINUS TACHYCARDIA : Confirmed by: Diego Barahona 25-May-2018 09:30:26
--- NOTE | 2018-05-25 10:38 | RADIOLOGY REPORT (SQ) ---
EXAM DESCRIPTION: CT HEAD WITHOUT COMPLETED DATE/TIME: 05/25/2018 10:24 am REASON FOR STUDY: FALL, hit forehead, c/o head and neck pain COMPARISON: None available TECHNIQUE: Axial images acquired through the brain without intravenous contrast. Images reviewed wi th bone, brain and subdural windows. Additional sagittal and coronal reconstructions were generated. Images stored on PACS. All CT scanners at this facility use dose modulation, iterative reconstruction, and/or weight based d osing when appropriate to reduce radiation dose to as low as reasonably achievable (ALARA). [facility]: Dose Right [facility]: CareDose [facility]: Dose Right [facility]: Teradose 4D [facility]: [employer] RADIATION DOSE: CT Rad equipment meets quality standard of care and radiation dose reduction techniq ues were employed. CTDIvol: 53.2 mGy. DLP: 991 mGy-cm.mGy. LIMITATIONS: None. FINDINGS: VENTRICLES: Prominent. CEREBRUM: No masses. No hemorrhage. No midline shift. Areas of low density in the white matter mos t likely due to chronic micro-vascular ischemic change. More focal areas of hypoattenuation within t he bilateral basal ganglia, likely related to prior lacunar infarcts. No evidence of large vascular territory infarct. . CEREBELLUM: No masses. No hemorrhage. No alteration of density. No evidence for acute infarction. EXTRAAXIAL SPACES: Age-related involutional change. No fluid collections. No masses. ORBITS AND GLOBE: No intra- or extraconal masses. Normal contour of globe without masses. Bilateral cataract surgery. CALVARIUM: No fracture. PARANASAL SINUSES: No fluid or mucosal thickening. SOFT TISSUES: No masses. Mild soft tissue swelling overlying the frontal calvarium OTHER: No other significant finding. IMPRESSION: Soft tissue swelling overlying the left paramedian frontal calvarium. No evidence of ac selene intracranial process. 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 EVIDENCE OF ACUTE STROKE: NO. TECHNICAL DOCUMENTATION: JOB ID: [id number] Quality ID # [id number]: Final reports with documentation of one or more dose reduction techniques (e.g., Au tomated exposure control, adjustment of the mA and/or kV according to patient size, use of iterative reconstruction technique) 2010 [email or web address]- All Rights Reserved Reading location - IP/workstation name: [facility]
--- NOTE | 2018-05-25 11:00 | RADIOLOGY REPORT (SQ) ---
EXAM DESCRIPTION: CT CERVICAL SPINE WITHOUT COMPLETED DATE/TIME: 05/25/2018 10:24 am REASON FOR STUDY: FALL, hit forehead, c/o head and neck pain COMPARISON: 02/05/2018. TECHNIQUE: Axial images acquired through the cervical spine without intravenous contrast. Images re viewed with lung, soft tissue and bone windows. Reconstructed coronal and sagittal MPR images review ed. Images stored on PACS. All CT scanners at this facility use dose modulation, iterative reconstruction, and/or weight based d osing when appropriate to reduce radiation dose to as low as reasonably achievable (ALARA). [facility]: Dose Right [facility]: CareDose [facility]: Dose Right [facility]: Teradose 4D [facility]: [employer] RADIATION DOSE: CT Rad equipment meets quality standard of care and radiation dose reduction techniq ues were employed. CTDIvol: 20.1 mGy. DLP: 375 mGy-cm. mGy. LIMITATIONS: None. FINDINGS: ALIGNMENT: Straightening of the normal cervical lordosis. MINERALIZATION: Diffuse mottled appearance of the visualized skeleton, similar to CT dated 04/14/2018. VERTEBRAL BODIES: No evidence of a discrete fracture or dislocation. Osteophytosis most prominent at C6-7. DISCS: Multilevel degenerative disc disease with disc height loss greatest at C6-7. There is associa josee posterior osteophytosis with mild osseous canal narrowing. FACETS, LATERAL MASSES, POSTERIOR ELEMENTS: No evidence of facet fracture or dislocation. Multilevel facet arthropathy, greatest at C3-4 on the right. There is associated moderate to severe osseous ne ural foraminal narrowing at that level. Additional moderate bilateral neural foraminal narrowing at C4-5 bilaterally. Moderate to severe bilateral neural foraminal narrowing at C6-7 secondary to facet disease and neural foraminal narrowing. HARDWARE: None in the spine. VISUALIZED RIBS: No fractures. LUNG APICES AND SOFT TISSUES: No significant or acute findings. OTHER: No other significant finding. IMPRESSION: 1. New irregularity of the anterior superior endplate of T3 with less than 5% height lo ss compared to 02/05/18. Findings suggestive of acute anterior wedge fracture. No significant verte bral body height loss or retropulsion. 2. Multilevel degenerative changes without evidence of fracture of the cervical spine. 3. Mottled appearance of the visualized skeleton suggestive of metastatic disease or lymphoprolifera tive disorder. Recommend correlation with history of malignancy. Case discussed with Dr. Green at 1051 a.m. on 05/25/2018. TECHNICAL DOCUMENTATION: JOB ID: [id number] Quality ID # [id number]: Final reports with documentation of one or more dose reduction techniques (e.g., Au tomated exposure control, adjustment of the mA and/or kV according to patient size, use of iterative reconstruction technique) 2010 [employer]- All Rights Reserved Reading location - IP/workstation name: [email or web address]
[2018-05-25 13:53] LABS: APPEARANCE,URINE SLIGHTLY-CLOUDY; BILIRUBIN,URINE NEGATIVE (NEGATIVE); COLOR,URINE YELLOW; GLUCOSE, URINE NEGATIVE (NEGATIVE); KETONES,URINE NEGATIVE (NEGATIVE); LEUKOCYTE ESTERASE,URINE NEGATIVE (NEGATIVE); NITRITE,URINE NEGATIVE (NEGATIVE); PROTEIN,URINE NEGATIVE (NEGATIVE); URINE SPECIFIC GRAVITY 1.013
--- NOTE | 2018-05-25 14:09 | ER Document Report ---
Entered by TIFF BINGHAM SCRIBE 05/25/18901 Acting as scribe for:LINCOLN GALVEZ MD ED Fall - General Chief Complaint: Fall Stated Complaint: NECK PAIN Time Seen by Provider: 05/25/18 08:49 Primary Care Provider: ILDA,LATASHA [Primary Care Provider] - Follow up as needed Mode of Arrival: Ambulatory Information source: Patient Notes: Patient is an 88 year old male with arthritis and dementia presents to the emergency department complaining of a neck pain secondary a fall onset this morning. Patient states he was bending over to tie his shoes when he lost his balance and fell forward, hitting his forehead. He denies any shoulder, elbow, wrist or hip pain or other focal symptoms. Patient states he has chronic pain due to his arthritis. TRAVEL OUTSIDE OF THE [place] IN LAST 30 DAYS: No - Related data Allergies/Adverse Reactions: No Known Allergies Allergy (Verified 12/14/16 09:44) Past Medical History - General Information source: Patient - Social History Smoking Status: Unknown if Ever Smoked Drug Abuse: None Family History: Reviewed & Not Pertinent Patient has suicidal ideation: No Patient has homicidal ideation: No - Past Medical History Cardiac Medical History: Reports: Hx Hypertension Endocrine Medical History: Reports: Hx Diabetes Mellitus Type 2 Review of Systems - Review of Systems Constitutional: No symptoms reported EENT: No symptoms reported Cardiovascular: No symptoms reported Respiratory: No symptoms reported Gastrointestinal: No symptoms reported Genitourinary: No symptoms reported Male Genitourinary: No symptoms reported Musculoskeletal: See HPI Skin: No symptoms reported Hematologic/Lymphatic: No symptoms reported Neurological/Psychological: No symptoms reported -: Yes All other systems reviewed and negative Physical Exam - Vital signs Vitals: Temp Pulse Resp BP Pulse Ox 99.9 F 100 18 104/51 L 96 05/25/18 09:11 05/25/18 09:11 05/25/18 09:11 05/25/18 09:11 05/25/18 09:11 - Notes Notes: GENERAL: Alert, interacts well. No acute distress. HEAD: Normocephalic. Left mid forehead contains a small hematoma with a small abrasion, no break in skin, tender to palpation. EYES: Pupils equal, round, and reactive to light. Extraocular movements intact. ENT: Oral mucosa moist, tongue midline. NECK: Placed in a c-collar. After the CT scan, the cervical collar was removed. He does not appear to have any tenderness on palpating over the cervical spinous processes. BACK: There is no tenderness palpating over the upper thoracic spinous processes. LUNGS: Clear to auscultation bilaterally, no wheezes, rales, or rhonchi. No respiratory distress. HEART: Regular rate and rhythm. No murmurs, gallops, or rubs. ABDOMEN: Soft, non-tender. Non-distended. Bowel sounds present in all 4 quadrants. No guarding, rigidity, or rebound. EXTREMITIES: Moves all 4 extremities spontaneously. There is no tenderness with palpation and manipulation of the shoulders, elbows, wrists, hips, knees, or ankles. NEUROLOGICAL: Alert and oriented x3. Normal speech. PSYCH: Normal affect, normal mood. SKIN: Warm, dry. Course - Vital Signs Vital signs: Temp Pulse Resp BP Pulse Ox 99.9 F 100 27 H 104/51 L 97 05/25/18 09:11 05/25/18 09:11 05/25/18 10:00 05/25/18 09:11 05/25/18 10:00 - Laboratory Laboratory results interpreted by ny: 05/25/18 13:25 Urine Urobilinogen 4.0 H - Diagnostic Test Radiology reviewed: Image reviewed, Reports reviewed - CT scan of the head shows the left forehead hematoma but no acute intra-cranial abnormalities. Cervical spine does not show acute injury. There is a superior anterior endplate fracture at T3 of indeterminate age. - EKG Interpretation by De EKG shows normal: Sinus rhythm, [place], Intervals, QRS Complexes, ST-T Waves Rate: Tachycardia - 101 When compared to previous EKG there are: No significant change Discharge - Discharge Clinical Impression: Fall Qualifiers: Encounter type: initial encounter Qualified Code(s): W19.XXXA - Unspecified fall, initial encounter Contusion of forehead Qualifiers: Encounter type: initial encounter Qualified Code(s): S00.83XA - Contusion of other part of head, initial encounter Condition: Stable Disposition: HOME, SELF-CARE Additional Instructions: Contusion Your injury has resulted in a contusion -- a crushing of the deep tissues. No injury to important structures was detected during the physician's exam. Contusions vary in the amount of pain they cause, and in the length of time required for healing. Typically, the area will become bruised, and will remain painful to touch for two or three weeks. However, most patients are back to working and playing within a few days. After the initial period of rest and cold-packs, your symptoms (together with the doctor's recommendations) will determine how rapidly you can get back to full activity. Usually this means "do what feels okay, but don't do things that hurt." If re-examination was recommended, it's important to follow up as instructed. Call the doctor or return any time if pain increases, if swelling becomes severe, if you develop numbness or weakness in an injured extremity, or if any other alarming symptoms occur. Follow-up with your doctor as needed. RETURN TO THE EMERGENCY ROOM IF ANY NEW OR WORSENING SYMPTOMS. [facility]errals: [facility] [[facility]] - Follow up as needed Scribe Attestation: 05/25/18 09:24 I personally performed the services described in the documentation, reviewed and edited the documentation which was dictated to the scribe in my presence, and it accurately records my words and actions. I personally performed the services described in the documentation, reviewed and edited the documentation which was dictated to the scribe in my presence, and it accurately records my words and actions.
[2018-05-25 14:45] VITALS: BP 105/54
== END 2018-05-25 14:52 | disposition home or self-care (01) ==
LOC: ER 08:26
DX: S00.83XA Contusion of other part of head, initial encounter (principal); W17.89XA Other fall from one level to another, initial encounter; Y93.89 Activity, other specified; Y92.199 Unspecified place in other specified residential institution as the place of occurrence of the external cause; M54.2 Cervicalgia; R00.0 Tachycardia, unspecified; I10 Essential (primary) hypertension; E11.9 Type 2 diabetes mellitus without complications; F03.90 Unspecified dementia, unspecified severity, without behavioral disturbance, psychotic disturbance, mood disturbance, and anxiety
CPT/HCPCS: 70450; 72125; 81001; 93005; 93010; 99284

== ENCOUNTER 2018-06-05 11:01 | Emergency (ER) | payer MEDICARE, OTHER ==
--- NOTE | 2018-06-05 11:42 | RADIOLOGY REPORT (SQ) ---
EXAM DESCRIPTION: CT HEAD WITHOUT COMPLETED DATE/TIME: 06/05/2018 11:34 am REASON FOR STUDY: fall COMPARISON: None. TECHNIQUE: Axial images acquired through the brain without intravenous contrast. Images reviewed wi th bone, brain and subdural windows. Additional sagittal and coronal reconstructions were generated. Images stored on PACS. All CT scanners at this facility use dose modulation, iterative reconstruction, and/or weight based d osing when appropriate to reduce radiation dose to as low as reasonably achievable (ALARA). [facility]: Dose Right [facility]: CareDose [facility]: Dose Right [facility]: Teradose 4D [facility]: [employer] RADIATION DOSE: CT Rad equipment meets quality standard of care and radiation dose reduction techniq ues were employed. CTDIvol: 53.2 mGy. DLP: 1097 mGy-cm.mGy. LIMITATIONS: None. FINDINGS: VENTRICLES: Prominent. CEREBRUM: No masses. No hemorrhage. No midline shift. Areas of low density in the white matter mos t likely due to chronic micro-vascular ischemic change. No evidence for acute infarction. CEREBELLUM: No masses. No hemorrhage. No alteration of density. No evidence for acute infarction. EXTRAAXIAL SPACES: Age-related involutional change. No fluid collections. No masses. ORBITS AND GLOBE: No intra- or extraconal masses. Normal contour of globe without masses. CALVARIUM: No fracture. PARANASAL SINUSES: No fluid or mucosal thickening. SOFT TISSUES: No mass or hematoma. OTHER: No other significant finding. IMPRESSION: CHRONIC CHANGES OF ATROPHY AND MICROVASCULAR ISCHEMIA. NO ACUTE PROCESS. EVIDENCE OF ACUTE STROKE: NO. TECHNICAL DOCUMENTATION: JOB ID: [id number] Quality ID # [id number]: Final reports with documentation of one or more dose reduction techniques (e.g., Au tomated exposure control, adjustment of the mA and/or kV according to patient size, use of iterative reconstruction technique) 2010 [employer]- All Rights Reserved Reading location - IP/workstation name: [email or web address]
--- NOTE | 2018-06-05 12:12 | ER Document Report ---
ED General - General Chief Complaint: Fall Injury Stated Complaint: FALL Time Seen by Provider: 06/05/18 11:07 Primary Care Provider: LATASHA GONSALES [Primary Care Provider] - Follow up as needed TRAVEL OUTSIDE OF THE [place] IN LAST 30 DAYS: No - HPI Patient complains to provider of: Fall Notes: Patient coming in for evaluation of fall. According EMS patient was placing his shoe only fell forward hitting his head. No loss consciousness. Patient does have multiple small bruises across the forehead that are various stages of healing looks like the patient has had multiple falls. Patient upon my evaluation is awake alert smiling and complains of no headache no chest pain no abdominal pain. Patient states he is hungry and thirsty. [facility] paperwork was reviewed - Related Data Allergies/Adverse Reactions: No Known Allergies Allergy (Verified 12/14/16 09:44) Past Medical History - Social History Smoking Status: Former Smoker Chew tobacco use (# tins/day): No Frequency of alcohol use: None Drug Abuse: None Family History: Reviewed & Not Pertinent Patient has suicidal ideation: No Patient has homicidal ideation: No - Past Medical History Cardiac Medical History: Reports: Hx Hypertension Endocrine Medical History: Reports: Hx Diabetes Mellitus Type 2 Renal/ Medical History: Denies: Hx Peritoneal Dialysis GI Medical History: Reports: Hx Gastroesophageal Reflux Disease Review of Systems - Review of Systems Notes: Dementia confusion Constitutional: Other - Fall EENT: No symptoms reported Cardiovascular: No symptoms reported Respiratory: No symptoms reported Gastrointestinal: No symptoms reported Genitourinary: No symptoms reported Male Genitourinary: No symptoms reported Musculoskeletal: No symptoms reported Skin: No symptoms reported Hematologic/Lymphatic: No symptoms reported Neurological/Psychological: No symptoms reported Physical Exam - Vital signs Vitals: Temp Pulse Resp BP Pulse Ox 98.5 F 81 16 102/57 L 94 06/05/18 11:23 06/05/18 11:23 06/05/18 11:23 06/05/18 11:23 06/05/18 11:23 Interpretation: Normal - General General appearance: Appears well, Alert - HEENT Head: Normocephalic, Atraumatic Eyes: Normal Pupils: PERRL - Respiratory Respiratory status: No respiratory distress Chest status: Nontender Breath sounds: Normal Chest palpation: Normal - Cardiovascular Rhythm: Regular Heart sounds: Normal auscultation Murmur: No - Abdominal Inspection: Normal Distension: No distension Bowel sounds: Normal Tenderness: Nontender Organomegaly: No organomegaly - Back Back: Normal, Nontender - Extremities General upper extremity: Normal inspection, Nontender, Normal color, Normal ROM, Normal temperature General lower extremity: Normal inspection, Nontender, Normal color, Normal ROM, Normal temperature, Normal weight bearing. No: Kyle's sign - Neurological Neuro grossly intact: Yes Cognition: Normal Orientation: AAOx4 Caleb Coma Scale Eye Opening: Spontaneous [place] Coma Scale Verbal: Oriented [place] Coma Scale Motor: Obeys Commands [place] Coma Scale Total: 15 Speech: Normal Motor strength normal: LUE, RUE, LLE, RLE Sensory: Normal - Psychological Associated symptoms: Normal affect, Normal mood - Skin Skin Temperature: Warm Skin Moisture: Dry Skin Color: Normal Course - Re-evaluation Re-evalutation: 06/05/18 12:[address] scans not show any critical pathology patient be sent back to the nursing care facility for further evaluation and monitoring. - Vital Signs Vital signs: Temp Pulse Resp BP Pulse Ox 98.5 F 81 16 102/57 L 94 06/05/18 11:23 06/05/18 11:23 06/05/18 11:23 06/05/18 11:23 06/05/18 11:23 Discharge - Discharge Clinical Impression: Fall at [facility] Condition: Good Instructions: Head Injury Precautions ([facility]) Additional Instructions: Please follow-up with primary care physician in [address] of the head today is negative for any acute traumatic findings Referrals: [facility] [Primary [facility] Provider] - Follow up as needed
[2018-06-05 12:19] VITALS: BP 110/62
== END 2018-06-05 12:37 | disposition home or self-care (01) ==
LOC: ER 11:01
DX: S09.93XA Unspecified injury of face, initial encounter (principal); S09.90XA Unspecified injury of head, initial encounter; W18.30XA Fall on same level, unspecified, initial encounter; Y92.129 Unspecified place in nursing home as the place of occurrence of the external cause; F03.90 Unspecified dementia, unspecified severity, without behavioral disturbance, psychotic disturbance, mood disturbance, and anxiety; I10 Essential (primary) hypertension; E11.9 Type 2 diabetes mellitus without complications; Z91.81 History of falling
CPT/HCPCS: 70450; 99284